=== PATIENT | male | born 1980 ===

== ENCOUNTER 2025-05-23 17:02 | Emergency (ER) | payer SELFPAY ==
[2025-05-23 17:04] VITALS: BP 129/83; PULSE 60; RESP 16; TEMP 36.5; O2SAT 100
--- NOTE | 2025-05-23 17:36 | PC.NURSE ---
pt [id number], did not want to wait
== END 2025-05-23 20:32 | disposition left against medical advice (07) ==
LOC: ANHED 20:26
PROVIDERS: PCP Family Medicine
DX: R11.12 Projectile vomiting (principal)
CPT/HCPCS: 99199